=== PATIENT | male | born 1965 | race Caucasian/White ===

== ENCOUNTER 2022-04-11 12:53 | Emergency (ER) | payer BC, SELFPAY ==
[~2022-04-11 12:53] MED LIST: Iopamidol 300 61% 100 ML VIAL FS ONE
[2022-04-11] MEDS ORDERED: Ondansetron PF 4 MG/2 ML Vial ONE (13:11)
[2022-04-11] MEDS ORDERED: Morphine 4 MG/ML VIAL ONE (13:11)
[2022-04-11] MEDS ORDERED: Dicyclomine 20 MG/2 ML VIAL ONE (13:11)
[2022-04-11] MEDS ORDERED: Ketorolac Tromethamine 30 MG/ML VIAL ONE (13:11)
[2022-04-11 13:30] LABS: #Monocytes 0.7 10x3/uL (0.0-1.1); #Neutrophils 4.1 10x3/uL (1.5-8.4); %Basophils 0.8 % (0.0-2.0); %Eosinophils 0.4 % (0.0-6.0); %Lymphocytes 6.9 % (18.0-47.0); %Monocytes 13.4 % (0.0-10.0); %Neutrophils 78.3 % (40.0-75.0); Hemoglobin 11.6 g/dL (13.5-17.5); Mean Corpuscular HGB CONC 33.4 g/dL (32.0-36.0); Mean Corpuscular Hemoglobin 30.2 pg (27.0-33.0); Mean Corpuscular Volume 90.4 fl (81.2-95.1); Platelet Count 275 10x3/uL (150-450); RBC Distribution Width 13.4 % (11.5-14.5); Red Blood Cell (RBC) Count 3.84 10x6/uL (4.32-5.72); White Blood Cell (WBC) Count 5.2 10x3/uL (3.5-10.5)
[2022-04-11 13:44] LABS: ALT (SGPT) 9 U/L (8-55); AST (SGOT) 21 U/L (5-34); Albumin 3.7 g/dL (3.5-5.0); Alkaline Phosphatase 72 U/L (40-110); Anion Gap 14 mmol/L (10-20); BUN (Urea Nitrogen) 14 mg/dL (8.4-25.7); Bilirubin, Total 0.3 mg/dL (0.2-1.2); Calc. Creatinine Clearance 0 mL/min (70-130); Calcium 8.7 mg/dL (7.8-10.44); Carbon Dioxide 26 mmol/L (22-29); Chloride 102 mmol/L (98-107); Estimated GFR 105; Globulin 2.3 g/dL (2.4-3.5); Glucose 107 mg/dL (70-105); Lipase 123 U/L (8-78); Magnesium 1.6 mg/dL (1.6-2.6); Potassium 3.4 mmol/L (3.5-5.1); Sodium 139 mmol/L (136-145)
[2022-04-11] MEDS ORDERED: Acetaminophen 500 MG TAB ONE (14:25)
[2022-04-11] MEDS ORDERED: Metoclopramide HCl 10 MG/2 ML VIAL ONE (14:26)
[2022-04-11] MEDS ORDERED: diphenhydrAMINE 50 MG/ML VIAL ONE (14:26)
== END 2022-04-11 15:22 | disposition home or self-care (01) ==
LOC: CSHERS 12:53
DX: K29.70 Gastritis, unspecified, without bleeding (principal); I10 Essential (primary) hypertension; F17.210 Nicotine dependence, cigarettes, uncomplicated
CPT/HCPCS: 71045; 74177; 80053; 83690; 83735; 84484; 85025; 93005; 94760; 96361; 96372; 96374; 96375; J1200; J1885; J2270; J2405; J2765; Q9967

== ENCOUNTER 2025-03-01 04:52 | Emergency (ER) | payer SELFPAY ==
[2025-03-01] MEDS ORDERED: Famotidine/PF 20 mg/2ml Vial ONE (05:03)
[2025-03-01] MEDS ORDERED: diphenhydrAMINE 50 MG/ML VIAL ONE (05:03)
[2025-03-01 05:08] LABS: #Basophils 0.08 10x3/uL (0.0-0.2); #Eosinophils 0.10 10x3/uL (0.0-0.5); #Monocytes 1.04 10x3/uL (0.0-1.1); #Neutrophils 5.35 10x3/uL (1.5-8.4); %Basophils 0.8 % (0.0-2.0); %Eosinophils 1.0 % (0.0-6.0); %Lymphocytes 32.3 % (18.0-47.0); %Monocytes 10.7 % (0.0-10.0); %Neutrophils 55.0 % (40.0-75.0); Hematocrit 40.0 % (38.8-50.0); Hemoglobin 12.9 g/dL (13.5-17.5); Mean Corpuscular Hemoglobin 30.5 pg (27.0-33.0); Mean Corpuscular Volume 94.6 fL (81.2-95.1); Platelet Count 285 10x3/uL (150-450); Red Blood Cell (RBC) Count 4.23 10x6/uL (4.32-5.72); White Blood Cell (WBC) Count 9.74 10x3/uL (3.5-10.5)
[2025-03-01 05:24] LABS: ALT (SGPT) 10 U/L (Less than 45); AST (SGOT) 20 U/L (11-34); Albumin 4.0 g/dL (3.1-4.5); Alkaline Phosphatase 73 U/L (40-110); Anion Gap 13 mmol/L (10-20); BUN (Urea Nitrogen) 14 mg/dL (8.4-25.7); Bilirubin, Total 0.4 mg/dL (0.3-1.2); Calc. Creatinine Clearance 0 mL/min (70-130); Calcium 8.6 mg/dL (7.8-10.44); Carbon Dioxide 21 mmol/L (23-31); Chloride 109 mmol/L (98-107); Globulin 3.0 g/dL (2.4-3.5); Glucose 97 mg/dL (80-115); Potassium 4.0 mmol/L (3.5-5.1); Sodium 139 mmol/L (136-145)
[2025-03-01 05:28] LABS: Troponin I 0.013 ng/mL (< 0.028)
[2025-03-01] MEDS ORDERED: Droperidol 5 MG/2 ML VIAL ONE (06:32)
== END 2025-03-01 07:19 | disposition home or self-care (01) ==
LOC: CSHERS 04:52
DX: T78.40XA Allergy, unspecified, initial encounter (principal); I10 Essential (primary) hypertension; R51.9 Headache, unspecified; R07.0 Pain in throat; F17.210 Nicotine dependence, cigarettes, uncomplicated; Z91.198 Patient's noncompliance with other medical treatment and regimen for other reason; Z79.899 Other long term (current) drug therapy
CPT/HCPCS: 70360; 80053; 83880; 84484; 85025; 93005; 93010; 94760; 96374; 96375; J1200; J1308; J1790